=== PATIENT | female | born 1970 | race Caucasian/White ===

== ENCOUNTER → 2024-01-10 06:33 | Outpatient (REF) | payer OTHER, SELFPAY | LOC: WDC 06:33 | PROVIDERS: ATTENDING PHYSICIAN Obstetrics & Gynecology; FAMILY PHYSICIAN Internal Medicine | DX: Z12.31 Encounter for screening mammogram for malignant neoplasm of breast (principal) | CPT/HCPCS: 77063; 77067 ==

== ENCOUNTER → 2025-01-13 06:35 | Outpatient (REF) | payer OTHER, SELFPAY | LOC: WDC 06:35 | PROVIDERS: ATTENDING PHYSICIAN Obstetrics & Gynecology; FAMILY PHYSICIAN Internal Medicine | DX: Z12.31 Encounter for screening mammogram for malignant neoplasm of breast (principal) | CPT/HCPCS: 77063; 77067 ==

== ENCOUNTER → 2025-06-15 13:54 | Outpatient (REF) | payer OTHER, SELFPAY | LOC: WDC 13:54 | PROVIDERS: ATTENDING PHYSICIAN Obstetrics & Gynecology; FAMILY PHYSICIAN Internal Medicine | DX: R92.30 Dense breasts, unspecified (principal) | CPT/HCPCS: 76641 ==

== ENCOUNTER 2025-07-16 00:05 | Emergency (ER) | payer OTHER, SELFPAY ==
[2025-07-16] VITALS (9 sets, daily range): BP systolic 97–133; BP diastolic 53–80; BMI 31.3
[2025-07-16 01:12] LABS: Hematocrit 33.7 % (37.0-47.0); Hemoglobin 10.4 g/dL (12.0-16.0); Mean Corp Hgb Conc. 30.9 g/dL (33.0-37.0); Mean Corpuscular Volume 72.2 fL (81.0-99.0); Platelet Count 228 10^3/uL (130-400); Red Cell Dist. Width 14.8 % (11.5-14.5)
[2025-07-16 01:25] LABS: ALT (SGPT) 23 U/L (0-35); AST (SGOT) 23 U/L (14-36); Albumin 4.2 g/dl (3.5-5.0); Alkaline Phosphatase 51 U/L (38-126); Blood Urea Nitrogen 19 mg/dl (7-17); Calcium 9.2 mg/dl (8.4-10.2); Carbon Dioxide 30 mmol/L (22-30); Chloride 104 mmol/L (98-107); Estimated Creatinine Clearance 107 ml/min; Glucose 84 mg/dl (70-99); Potassium 3.3 mmol/L (3.5-5.1); Sodium 138 mmol/L (135-145); Total Protein 6.6 g/dl (6.3-8.2); eGFR > 60.00
[2025-07-16 01:38] LABS: Troponin I < 0.012 ng/ml
[2025-07-16 02:26] LABS: Nucleated Red Blood Cells % 0 %
[2025-07-16 05:48] LABS: Troponin I < 0.012 ng/ml
--- NOTE | 2025-07-16 05:55 | ED.GENMED ---
History of Present Illness
General
Chief Complaint: Chest Pain
Source: patient
Exam Limitations: none
Time Seen by Provider: 07/16/25 00:48
Nursing documentation reviewed up to this point in time: agreed with
History of Present Illness
History of Present Illness:
Note:
CHIEF COMPLAINT(S)
Burning pain in the chest with dull pain radiating to the arm.
HISTORY OF PRESENT ILLNESS
The patient is a 55-year-old female who experienced burning pain in her chest, described as a hot sensation, which started at approximately 10:30 PM. She reported that the pain was not similar to indigestion and was accompanied by a dull pain
radiating to her arm. The patient indicated the onset was brief but concerning. She mentioned having taken her second dose of a medication, likely valsartan at 5 mg, at 6:00 PM. She previously took 2.5 mg without side effects but experienced nausea
and diarrhea from the 5 mg dose last week. The patient expressed some anxiety that night but reported no additional symptoms such as shortness of breath.
PAST MEDICAL AND SURGICAL HISTORY
The patients past medical and surgical history was not discussed.
EXTERNAL RECORDS REVIEWED
According to the initial cardiac enzyme tests, the results were normal. A follow-up evaluation was planned to repeat cardiac enzymes at approximately 4:30 AM.
PHYSICAL EXAM
General: Alert, no acute distress.
Skin: Warm, dry.
Head: Normocephalic, atraumatic.
Neck: Supple, trachea midline.
Eye Ears, nose, mouth and throat: Oral mucosa moist.
Cardiovascular: Normal peripheral perfusion, no edema.
Respiratory: Respirations are non-labored.
Gastrointestinal: Abdomen nondistended.
Back: Normal range of motion, normal alignment.
Musculoskeletal: Normal ROM, normal strength.
Neurological: Alert and oriented to person, place, time, and situation, no focal neurological deficit observed.
Psychiatric: Cooperative, appropriate mood & affect.
PLAN
1. Proceed with repeating the cardiac enzyme tests at 4:30 AM to rule out cardiac causes.
2. If follow-up tests are normal, consider a referral to cardiology within a few days for further evaluation.
3. Monitor symptoms and reassess if they persist or worsen.
4. The patient is advised to return for evaluation if new symptoms develop.
DIFFERENTIAL DIAGNOSIS
The Differential Diagnosis includes, in no particular order and is not limited to:
1. Myocardial infarction
2. Angina pectoris
3. Gastroesophageal reflux disease
4. Musculoskeletal pain
5. Anxiety-related cardiovascular symptoms
6. Costochondritis
7. Pericarditis
8. Panic attack
9. Pulmonary embolism
10. Esophageal spasm
Disposition:
SUMMARY OF ENCOUNTER
The patient, a 55-year-old female, presented to the emergency department with chief complaints of burning chest pain radiating to her arm, beginning at approximately 10:30 PM. The pain was concerning but resolved shortly after her arrival at the
emergency department. Initial cardiac enzyme tests, specifically troponin levels, were negative, and a chest x-ray did not reveal any acute findings.
DISPOSITION
Discharge home.
ASSESSMENT
The chest pain is likely not related to an acute cardiac event given the negative troponin tests and clear chest x-ray. Further outpatient evaluation is advised.
PLAN
1. Proceed with repeating the cardiac enzyme tests as planned.
2. If follow-up tests remain normal, consider referral to cardiology within a few days for further evaluation.
3. Advise the patient to monitor symptoms and seek medical attention if they persist or worsen, or if new symptoms develop.
INDEPENDENT REVIEW OF LABS AND INTERPRETATION OF TESTS
- My independent review of cardiac enzyme tests indicates negative troponin levels, ruling out acute myocardial infarction.
- My independent interpretation of the chest x-ray is negative for acute abnormalities.
FOLLOW-UP INSTRUCTIONS
The patient is advised to follow up in the chest pain clinic or with her primary care provider as per the chest pain follow-up outline provided.
MEDICAL DECISION MAKING
- Number and Complexity of Problems Addressed: Differential diagnosis includes myocardial infarction, angina pectoris, gastroesophageal reflux disease, and anxiety-related cardiovascular symptoms, among others.
- Data:
- Category 1: Initial cardiac enzyme tests were reviewed, showing negative troponin levels.
- Category 2: My independent interpretation of the chest x-ray confirmed no acute pathology.
- Risk: Consideration of Admission/Observation: Escalation of care including admission/observation was considered given the complexity and risk of the patients presenting complaint and exam findings. However, ultimately, I feel the patient is safe
for outpatient management with close follow-up. Reasoning: Work-up reassuring, does not reveal any acute life/organ-threatening processes, patients symptoms well controlled upon reevaluation, reexamination is reassuring, vitals are stable, patient
agreeable with discharge, reliable for follow-up.
DIAGNOSIS
- Chest pain, unspecified (ICD-10 code R07.9)
- Symptoms potentially suggestive of angina pectoris (ICD-10 code I20.9)
Course
Orders/Labs/Results
Orders:
Orders
07/16/25 00:06
EKG [Electrocardiogram (*1)] Urgent
Reason for Study: Chest Pain
EKG- Treatment ONCE
07/16/25 00:49
Complete Blood Count/With Diff Urgent
Comprehensive Metabolic Panel Urgent
Troponin I Urgent
07/16/25 01:56
CR Chest - 2 Views Urgent
Comment:
Reason For Exam: cp
07/16/25 04:54
Troponin I Urgent
07/16/25 05:00
Electrocardiogram (*1) Urgent
Reason for Study: Chest Pain
Abnormal Lab Results
07/16/25
00:49
Hgb 10.4 L g/dL
(12.0-16.0)
Hct 33.7 L %
(37.0-47.0)
MCV 72.2 L fL
(81.0-99.0)
MCH 22.3 L pg
(27.0-31.0)
MCHC 30.9 L g/dL
(33.0-37.0)
RDW 14.8 H %
(11.5-14.5)
MPV 11.3 H fL
(7.4-10.4)
Potassium 3.3 L mmol/L
(3.5-5.1)
BUN 19 H mg/dl
(7-17)
07/16/25 00:49
07/16/25 00:49
Vital Signs
Initial and Last Documented VS:
Initial Vital Signs
Temp Pulse Resp BP Pulse Ox
98.5 F 64 14 124/80 97
07/16/25 00:11 07/16/25 00:11 07/16/25 00:11 07/16/25 00:11 07/16/25 00:11
Last Documented Vital Signs
Temp Pulse Resp BP Pulse Ox
98.5 F 59 14 106/73 98
07/16/25 00:11 07/16/25 05:00 07/16/25 05:00 07/16/25 05:00 07/16/25 05:00
*Radiology
Radiology exam reviewed: all reviewed NAD by ED Provider
*Pulse Oximetry
SaO2: 98
Oxygen Mode of Delivery: Room air
Patient hypoxic: no
*Critical Care Note
Total Time (30-74mins, 75-104mins- exclusive of procedures): Not Applicable
ED Attending Note
-
Portions of this chart may have been created with voice recognition software.� Occasional wrong word or��sound alike� substitutions may have occurred due to the inherent limitations of voice recognition software.
Discharge Plan
Departure
Patient Disposition: Home (Routine Discharge)
Date of Disposition: 07/16/25
Time of Disposition: 05:56
Patient with high blood pressure during this ER visit?: Yes
Discharge Problem:
Chest pain
Instructions: Chest Pain [facility] Follow Up
Referrals:
[facility] [Provider Group]
Mely Knowles MD [Family Provider, Internal Medicine]
Activity Restrictions/Additional Instructions:
Thank You for choosing [facility].
It was a pleasure meeting you and taking part in your care. We hope for your continued healing and wellness.
Please read discharge instructions in their entirety. However, they are for general education and may not describe your exact diagnosis at discharge. Information on your ER visit and medical conditions were discussed with you along with appropriate
follow up information...
If indicated, please take your medications as instructed and indicated on discharge paperwork.
Please schedule a follow up appointment as directed. Call to schedule an appointment
Please return to the emergency department with ANY change in, persisting, or worsening of symptoms. If any of your symptoms do not improve, or persist, or become more severe within 6-12 hours, please return to the emergency department for further
care.
Please return to the emergency department if you develop a headache, neck pain/stiffness, fever greater than 100.4F, chest pain, shortness of breath, persistent nausea, vomiting, slurred speech, difficulty walking, numbness/tingling, weakness, signs
of infection or any other symptoms that are worrisome to you.
If you have any questions or concerns please do not hesitate to call the Hospital at .
Interventions
Interventions:
*Risk Screen - Suicide Last Done: 07/16/25 00:11
*General Assessment Last Done: 07/16/25 00:40
*ED- Fall Risk Assessment Last Done: 07/16/25 00:40
*ED COVID-19 Vaccine History Last Done: 07/16/25 00:40
*ED Influenza Vaccine History Last Done: 07/16/25 00:40
ED- Cardiac Assessment Last Done: 07/16/25 00:40
Discharge Date and Time
Print Language: TELUGU
== END 2025-07-16 06:53 | disposition home or self-care (01) ==
LOC: EMR 00:05
PROVIDERS: EMERGENCY PHYSICIAN Student in an Organized Health Care Education/Training Program; FAMILY PHYSICIAN Internal Medicine
DX: R07.89 Other chest pain (principal); R51.9 Headache, unspecified; F41.9 Anxiety disorder, unspecified
CPT/HCPCS: 99283; 71046; 80053; 84484; 85025; 93005

== ENCOUNTER → 2025-07-25 07:44 | Outpatient (REF) | payer OTHER, SELFPAY | LOC: PAVMRI 07:44 | PROVIDERS: ATTENDING PHYSICIAN Nurse Practitioner | DX: M16.12 Unilateral primary osteoarthritis, left hip (principal); M79.2 Neuralgia and neuritis, unspecified | CPT/HCPCS: 72148; 73721 ==